=== PATIENT | male | born 1960 | race Caucasian/White ===

== ENCOUNTER 2019-03-26 08:38 | Day surgery (SDC) | payer BC ==
[2019-03-26] MEDS ORDERED: Ringers Lactate 1,000 ML IV ONE (09:02)
[2019-03-26] MEDS ORDERED: LIDOCAINE 1% W/EPI 1:100,000 MDV 20 ML VIAL ONE (10:10)
[2019-03-26] MEDS ORDERED: FENTANYL CITR 100 MCG/2 ML ONE (10:14)
[2019-03-26] MEDS ORDERED: MIDAZOLAM HCL 2 MG/2 ML INJ ONE (10:14)
[2019-03-26] MEDS ORDERED: LIDOCAINE 1% MPF 5 ML VIAL ONE (10:14)
[2019-03-26] MEDS ORDERED: PROPOFOL 200 MG/20 ML VIAL IV ONE (10:14)
[2019-03-26] MEDS ORDERED: BUPIVACA 0.5%/EPI 0.0005%/PF 30 ML VIAL ONE (10:44)
[2019-03-26] MEDS ORDERED: EPHEDRINE SULF 50 MG/ML VIAL ONE (11:26)
[2019-03-26] MEDS ORDERED: NS 0.9% VIAL 10 ML ONE (11:26)
--- NOTE | 2019-03-26 12:18 | P.BOP ---
Preoperative diagnosis: lip lesion uncertain behavior Postoperative diagnosis: lower lip SCC T1 (1cm), negative margins Primary procedure: wedge excision lower lip with primary closure Learning And Development Intern: NONE,NONE Estimated blood loss: 10ml Specimen: lower lip, suture 12 oclock (mucosal aspect) Anesthesia: General Complications: None Implants: none Fluids & blood products: crystalloid 900ml Transferred to: Recovery Room Condition: Good
--- NOTE | 2019-03-26 12:37 | EKG ---
Test Date: 2019-03-25 Test Time: 15:17:55 Casey Saw Operator: BARRERA MEASUREMENT RESULTS: Intervals: Rate: 67 IL: 162 QRSD: 86 QT: 396 QTc: 418 [place]: P: 58 IL: 162 QRS: 1 T: 28 INTERPRETIVE STATEMENTS: Normal sinus rhythm Normal ECG No previous ECG available for comparison Electronically Signed On 03-26-19 12:33:05 CDT by Josesito Youngblood
--- NOTE | 2019-03-27 19:01 | OP ---
Date of Procedure: 03/26/2019 Surgeon: Cynthia Puckett MD Preoperative Diagnosis: Lower lip lesion of uncertain behavior. 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 Primary Procedure: Wedge excision of lower lip with primary closure and frozen section. Indication For Procedure: Mr. Burciaga presented to the [facility] on 03/04/2013 with complaints of a lesion or foreign body of the lower lip for 1 week. He states that approximately 1 week prior to pr esentation, he was using a edge grinder and noted some hot spray or debris sitting in the right lower lip. He had pain at the time of the injury, but the pain resolved over a day or two. On exam at that ti me, he had a 1 cm exophytic appearing lesion with central darkening and mild tenderness. Clinical co ncerns at that time were for infection, foreign body reaction or infection. A debridement with biops y was performed. There was hyperkeratotic squamous mucosa with marked cytologic atypia and dysplasia could not be ruled out. On representation, the patient was noted to have persistent physical exam f indings with an approximately 1 cm mass of the right lower lip and due to the persistent abnormal fin dings, excision was recommended. Description Of Procedure: The patient was brought to the operating room. He was placed under genera l anesthesia via LMA. The patient's lip and anterior oral cavity was prepped with Betadine. A lap s ponge was packed into the mouth and oral the gingiva buccal sulcus. The lesion was exophytic approxi mately 1 cm and was located on the right vermilion dry portion of the lip. Photo documentation was n ot obtained prior to excision. The needlepoint Bovie electrocautery was used to incise around the le sheela with an approximately 2 to 3 mm gross margin. The full thickness of the skin was excised. A ruelas ture was placed marking 12 o'clock, which coincided with the superior aspect of the lesion near the m ucosal surface of the lip. The lesion was elevated with the deep aspect including a portion of the o rbicularis auris musculature. The specimen was then sent to pathology for frozen section analysis. The analysis confirmed invasive squamous cell carcinoma with negative deep and peripheral margins. U chavez return to the operating room. The defect was closely examined with measurements under tension. The lower lip length was noted to be 9 cm and the defect maximal width was 2 cm and decision was made to proceed with wedge resection with primary closure due to the defect being less than 1/3 of the to nieves lip length. The labial artery was noted on the superficial aspect of the surgical wound. This w as clamped on the lateral and medial aspects of the wound and wedge excision including the orbicular auris muscle as well as mucosal surface of the lip was excised, excised in order to allow for closure in the deep aspects were approximated with 0 Vicryl. A small wedge of skin from the cutaneous porti on of the lip was excised in order to improve closure and reduce tissue redundancy a 5-0 plain gut ruelas ture was used to close the mucosal and cutaneous portions of the lip in the running fashion. Triple antibiotic ointment was applied and the patient was returned to care of anesthesia for awakening extu bation in the operating room, which proceeded without difficulty. Complications: None. Implants: None. Disposition: The patient will be discharged home later today and follow up with Dr. Puckett in appro ximately 1 week for wound evaluation and further discussion of staging of the neck. Microscopically, the wound was invasive, but did not appear deeply invasive and due to the small size and short durat ion of symptoms, clinically the patient is now staged as a T1 N0 M0 lip squamous cell carcinoma. JOHN/FARHANA Voice ID: [id number] Report ID: [id number]
== END 2019-03-26 13:24 | disposition home or self-care (01) ==
LOC: OR 08:38
PROVIDERS: ATTEND Otolaryngology
PROC: 0CB1XZX Excision of Lower Lip, External Approach, Diagnostic (ICD-10-PCS; principal; 2019-03-26 11:00)
DX: C00.1 Malignant neoplasm of external lower lip (principal); I10 Essential (primary) hypertension; F17.210 Nicotine dependence, cigarettes, uncomplicated; Z79.899 Other long term (current) drug therapy
CPT/HCPCS: 40510; 93005; 88331; 88332; 88305; J2704; J2250; J3010